=== PATIENT | male | born 1960 | race American Indian/Alaskan Native ===

== ENCOUNTER 2020-06-30 06:32 | Emergency (ER) | payer BC ==
[2020-06-30] MEDS ORDERED: SODIUM CHLORIDE 0.9% 1000 ML 1,000 ML IV ONE (08:15)
[2020-06-30] MEDS ORDERED: fentaNYL 100 MCG/2 ML INJ IV ONE (08:15)
[2020-06-30] MEDS ORDERED: ONDANSETRON 4 MG/2 ML INJ IV ONE (08:15)
--- NOTE | 2020-06-30 08:19 | Emergency Department Report ---
HPI - General Chief Complaint: Urogenital-Male Time Seen by Provider: 06/30/20 08:05 - HPI HPI: Room 21 The patient is a 59-year-old male present with a chief complaint of left testicular pain and swelling. The patient states approximate 1 week ago he developed pain and swelling in the left testicle. Patient describes the pain is constant and says it "hurts like hell." Patient denies any preceding trauma. Patient denies history of nausea/vomiting, dysuria or hematuria. Patient is uncertain if he had a fever but states he has had chills. Patient gives his pain a score of 10/10 ED Past Medical Hx - Past Medical History Previous Medical History?: No - Surgical History Past Surgical History?: No - Family History Family history: no significant - Social History Smoking Status: Current Every Day Smoker (1 pack/day) Substance Use Type: Alcohol (Occasional), Marijuana - Medications Home Medications: Home Medications Medication Instructions Recorded Confirmed Last Taken Type HYDROcodone/APAP 5-325 [[place] 1 - 2 each PO Q6HR PRN #14 tablet 06/30/20 Unknown Rx 5/325] Ibuprofen [Motrin 800 MG tab] 800 mg PO Q8HR PRN #20 tablet 06/30/20 Unknown Rx Sulfamethoxazole/Trimethoprim 1 each PO BID #20 tablet 06/30/20 Unknown Rx [Bactrim DS TAB] ED Review of Systems ROS: Stated complaint: GROIN PAIN/SWOLLEN TESTICAL Other details as noted in HPI Constitutional: chills, fever (?) Eyes: denies: eye pain ENT: denies: throat pain Respiratory: no symptoms reported Cardiovascular: denies: chest pain Endocrine: no symptoms reported Gastrointestinal: denies: abdominal pain, nausea, vomiting Genitourinary: testicular pain. denies: dysuria, hematuria Musculoskeletal: denies: back pain Neurological: denies: headache Physical Exam - Physical Exam Vital Signs: Vital Signs 06/30/20 06/30/20 06:36 06:38 Temperature 97.9 F Pulse Rate 113 H Respiratory 18 Rate Blood Pressure 125/59 [Left] O2 Sat by Pulse 97 Oximetry Physical Exam: GENERAL: The patient is well-developed well-nourished male lying on stretcher not appearing to be in acute distress. [] HEENT: Normocephalic. Atraumatic. Extraocular motions are intact. Patient has moist mucous membranes. NECK: Supple. Trachea midline CHEST/LUNGS: There is no respiratory distress noted. HEART/CARDIOVASCULAR: Regular. There is no tachycardia. There is no gallop rub or murmur. ABDOMEN: Abdomen is soft, nontender. Patient has normal bowel sounds. There is no abdominal distention. SKIN: There is no rash. There is no edema. There is no diaphoresis. NEURO: The patient is awake, alert, and oriented. The patient is cooperative. The patient has no focal neurologic deficits. The patient has normal speech MUSCULOSKELETAL: There is no evidence of acute injury. GENITOURINARY: Left testicle is swollen and tender to palpation. Positive cremasteric reflex bilaterally ED Course Vital Signs 06/30/20 06/30/20 06:36 06:38 Temperature 97.9 F Pulse Rate 113 H Respiratory 18 Rate Blood Pressure 125/59 [Left] O2 Sat by Pulse 97 Oximetry - Reevaluation(s) Reevaluation #1: 06/30/20 11:10 Heart rate 91 at time of discharge ED Medical Decision Making - Lab Data Result diagrams: 06/30/20 08:32 06/30/20 08:32 Laboratory Tests 06/30/20 06/30/20 06/30/20 08:32 08:32 10:25 WBC 22.8 H RBC 4.85 Hgb 13.9 Hct 37.8 MCV 78 L MCH 29 MCHC 37 H RDW 14.2 Plt Count 270 Sodium 138 Potassium 3.9 Chloride 100.8 Carbon Dioxide 28 Anion Gap 13 BUN 17 Creatinine 0.7 L Estimated GFR > 60 BUN/Creatinine Ratio 24 Glucose 95 Calcium 8.7 Urine Color Graciela Urine Turbidity Clear Urine pH 5.0 Ur Specific Wilkinson 1.026 Urine Protein 30 mg/dl Urine Glucose (UA) Neg Urine Ketones Neg Urine Blood Neg Urine Nitrite Pos Urine Bilirubin Neg Urine Urobilinogen 4.0 Ur Leukocyte Esterase Tr Urine WBC (Auto) 8.0 H Urine RBC (Auto) 1.0 Urine Bacteria (Auto) 4+ Urine Mucus 3+ - Radiology Data Radiology results: report reviewed (Testicular ultrasound), image reviewed (Testicular ultrasound) [facility] [address] [place] [address] Ultrasound Report Signed Patient: PARVIZ SARABIA MR#: [id number] : 1960 Acct:[id number] Age/Sex: 59 / M ADM Date: 06/30/20 Loc: ED Attending Dr: Ordering Physician: HOLA BURNS MD Date of Service: 06/30/20 Procedure(s): US testicular doppler comp Accession Number(s): [id number] cc: HOLA BURNS MD ULTRASOUND SCROTUM INDICATION / CLINICAL INFORMATION: Left testicular pain and swelling. COMPARISON: None available. FINDINGS -- RIGHT TESTIS: Size = 5.6 x 2.4 x 3.7 cm. - Appearance: No significant abnormality. - Cyst or Mass: None. - Color Doppler Flow: No significant abnormality. EPIDIDYMIS: No significant abnormality. HYDROCELE: None. VARICOCELE: None demonstrated. FINDINGS -- LEFT TESTIS: Size = 5.0 x 3.8 x 4.2 cm. - Appearance: Mild heterogeneity. - Cyst or Mass: None. - Color Doppler Flow: Increased vascularity. EPIDIDYMIS: Enlarged, heterogeneous, hypervascular appearance. HYDROCELE: None. VARICOCELE: None demonstrated. ADDITIONAL FINDINGS: None. IMPRESSION: 1. Left-sided epididymoorchitis. Signer Name: Tee Wilson MD Signed: 06/30/2020 9:27 AM Workstation Name: [id number] Transcribed By: RH Dictated By: TEE WILSON III Electronically Authenticated By: TEE WILSON III Signed Date/Time: 06/30/20926 DD/ 2 TD/TT: Print Cancel - Differential Diagnosis Epididymitis, orchitis, testicular torsion, UTI, Critical care attestation.: If time is entered above; I have spent that time in minutes in the direct care of this critically ill patient, excluding procedure time. ED Disposition Clinical Impression: Acute epididymo-orchitis, Left testicular pain Disposition: DC-01 TO HOME OR SELFCARE Is pt being admited?: No Does the pt Need Aspirin: No Condition: Stable Instructions: Epididymitis (ED), Epididymitis, Orchitis Additional Instructions: Return to the emergency department should you develop worsening symptoms, inability to tolerate food or liquids, high fever or any other concerns Prescriptions: Sulfamethoxazole/Trimethoprim [Bactrim DS TAB] 1 each PO BID #20 tablet Ibuprofen [Motrin 800 MG tab] 800 mg PO Q8HR PRN #20 tablet PRN Reason: Pain, Moderate (4-6) HYDROcodone/APAP 5-325 [[place] 5/325] 1 - 2 each PO Q6HR PRN #14 tablet PRN Reason: Pain Referrals: PAMELA MÉNDEZ MD [Staff Physician] - 3-5 Days (Dr. Méndez is a urologist. Please follow-up with him for further evaluation) Time of Disposition: 11:12
--- NOTE | 2020-06-30 09:31 | Ultrasound Report ---
ULTRASOUND SCROTUM INDICATION / CLINICAL INFORMATION: Left testicular pain and swelling. COMPARISON: None available. FINDINGS -- RIGHT TESTIS: Size = 5.6 x 2.4 x 3.7 cm. - Appearance: No significant abnormality. - Cyst or Mass: None. - Color Doppler Flow: No significant abnormality. EPIDIDYMIS: No significant abnormality. HYDROCELE: None. VARICOCELE: None demonstrated. FINDINGS -- LEFT TESTIS: Size = 5.0 x 3.8 x 4.2 cm. - Appearance: Mild heterogeneity. - Cyst or Mass: None. - Color Doppler Flow: Increased vascularity. EPIDIDYMIS: Enlarged, heterogeneous, hypervascular appearance. HYDROCELE: None. VARICOCELE: None demonstrated. ADDITIONAL FINDINGS: None. IMPRESSION: 1. Left-sided epididymoorchitis. Signer Name: Jamaal Wilson MD Signed: 06/30/2020 9:27 AM Workstation Name: [id number]
[2020-06-30 10:02] LABS: Mean Corpuscular HGB Conc 37 % (32-34); Mean Corpuscular Volume 78 fl (84-94); Platelet Count 270 K/mm3 (140-440); Red Blood Count 4.85 M/mm3 (3.65-5.03); Red Cell Distribution Width 14.2 % (13.2-15.2)
[2020-06-30 10:03] LABS: Hematocrit 37.8 % (35.5-45.6); Hemoglobin 13.9 gm/dl (11.8-15.2)
[2020-06-30] MEDS ORDERED: AZITHROMYCIN 1 GM ORAL PWDR PACKET PO ONE (10:05)
[2020-06-30] MEDS ORDERED: LIDOCAINE-MPF (1%) 10 MG/1 ML VIAL 5 ML INFILTRATI ONE (10:05)
[2020-06-30 10:09] LABS: Blood Urea Nitrogen 17 mg/dL (9-20); Calcium 8.7 mg/dL (8.4-10.2); Hemolysis Index 0
[2020-06-30 10:22] LABS: BUN/Creatinine Ratio 24
[2020-06-30 10:51] LABS: Bacteria,Urine 4+ /HPF (Negative); Bilirubin,Urine NEG (Negative); Blood,Urine NEG (Negative); Color,Urine Amber (Yellow); Mucus,Urine 3+ /HPF
[2020-06-30 11:11] VITALS: BP 118/72
[2020-06-30 12:02] LABS: Band Neutrophils # (Manual) 0.2 K/mm3; Platelet Estimate Consistent w Auto; RBC Morphology Normal; Total Cells Counted 100
== END 2020-06-30 11:15 | disposition home or self-care (01) ==
LOC: ED 06:32
DX: N45.3 Epididymo-orchitis (principal); N50.812 Left testicular pain; F12.90 Cannabis use, unspecified, uncomplicated; F17.200 Nicotine dependence, unspecified, uncomplicated; Z79.899 Other long term (current) drug therapy
CPT/HCPCS: 36415; 80048; 81001; 85007; 85025; 93975; 96361; 96372; 96374; 96375; 99284; J0696; J2405; J3010; J7030